=== PATIENT | female | born 1985 | race Caucasian/White ===

== ENCOUNTER 2016-12-04 11:01 | Emergency (ER) | payer BC, OTHER ==
[2016-12-04 12:34] LABS: MEAN CORPUSCULAR HEMOGLOBIN 32.1 pg (27.0-33.0); MEAN CORPUSCULAR HGB CONC 33.5 g/dl (32.0-36.5); MEAN CORPUSCULAR VOLUME 96.1 fl (80.0-96.0)
--- NOTE | 2016-12-04 14:57 | EDDOCDS ---
Nurse's Notes [facility] Name: Diann Tran Age: 31 yrs Sex: Female : 1985 Arrival Date: 12/04/2016 Time: 11:01 Bed I1 / M1 Private MD: No Pcp Diagnosis: Abnormal uterine and vaginal bleeding, unspecified;Other specified related conditions, first trimester Presentation: 12/04 11:04 Presenting complaint: Patient states: Approximately 10 weeks , intermittent ck1 bleeding with clots since Friday. Reports "mild" abdominal cramping since Friday night. Risk factors: The patient reports no loss of conciousness prior to arrival. This patient has not had a hysterectomy. This patient has not begun menopause. Adult Sepsis Screening: The patient does not have new or worsening altered mentation. Patient's respiratory rate is less than 22. Systolic blood pressure is less than or equal to 100 (1 point). Patient has a qSOFA score of 1- Negative Sepsis Screen. Suicide/Homicide risk assessment- the patient denies having any suicidal and/or homicidal ideations and does not present with any other emotional, behavioral or mental health complaints. Status: Patient is not a dental service technician or dependent. Transition of care: patient was not received from another setting of care. 11:04 Acuity: NEREIDA Level 3 ck1 11:04 Method Of Arrival: Walkin/Carried/Asstd ck1 Triage Assessment: 11:06 General: Appears in no apparent distress, comfortable, Behavior is appropriate for age, ck1 cooperative. Pain: Location: pelvis Pain currently is 2 out of 10 on a pain scale. Quality of pain is described as crampy. HIV screening NA for this visit Offered previously. Neurological: Level of Consciousness is awake, alert, obeys commands, Oriented to person, place, time. Respiratory: Respiratory effort is unlabored, Respiratory pattern is regular, symmetrical. : Reports vaginal bleeding that is with clots spotty. : Denies burning with urination. Derm: Skin is intact, is healthy with good turgor, Skin is pink, warm & dry. 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 Oral daily (Last dose: 12/03/2016 09:30) - PMHx: none; - PSHx: Cesearean Section; - Social history: Smoking status: Patient states was never smoker of tobacco. No barriers to communication noted, The patient speaks fluent Maori, Speaks appropriately for age. - Family history: Not pertinent. - : The pt / caregiver states he / she is not on anticoagulants. Home medication list is obtained from the patient. - Exposure Risk Screening:: None identified. Screenin:54 Screening information is obtained from the patient. Fall risk: No risks identified. ead Assistance ADL's: requires no assistance with activities of daily living. Abuse/DV Screen: The patient / caregiver reports he/she is: not in a situation that causes fear, pain or injury. Nutritional screening: No deficits noted. Advance Directives: Currently, there is no health care proxy. There is no Power of Respiratory Therapy Director. home support is adequate. Assessment: 12:30 General: Appears in no apparent distress, comfortable, Behavior is appropriate for age, ead cooperative, pleasant. Pain: Denies pain. Respiratory: Airway is patent Respiratory effort is even, unlabored. GI: Abdomen is flat, non- distended Denies nausea, vomiting, pain. : Reports vaginal bleeding that is moderate flow. Derm: Skin is pink, warm & dry. 13:39 General: Pt returned from ultrasound, awaiting results. ead 14:54 General: Appears in no apparent distress, comfortable, Behavior is appropriate for age, ead cooperative. Neurological: No deficits noted. Respiratory: Airway is patent Respiratory effort is even, unlabored. Derm: Skin is pink, warm & dry. Vital Signs: 11:02 BP 96 / 64; Pulse 80; Resp 18; Temp 98.9; Pulse Ox 100% ; Weight 50.8 kg; Height 5 ft. elp 1 in. (154.94 cm); Pain 2/10; 14:53 BP 103 / 58; Pulse 86; Resp 16; Temp 100.0(TE); Pulse Ox 98% ; Pain 2/10; jrd 11:02 Body Mass Index 21.16 (50.80 kg, 154.94 cm) [facility] Vitals: 11:02 Log In Time: December 04, 2016 at 10:50. [facility] ED Course: 11:02 Patient visited by Carolynn Lamar PCA. elp 11:02 No Pcp is Private Physician. elp 11:02 Patient moved to Waiting elp 11:03 Patient visited by Carolynn Lamar PCA. elp 11:03 Patient moved to Pre RCE elp 11:05 Triage Initiated ck1 11:48 Patient moved to Triage 3 rs6 11:57 Ad [facility] cc10 11:57 Markie Valencia MD is Attending Physician. cc10 11:57 Patient visited by Ad Garcia PA-C. cc10 11:57 Patient visited by Ad Garcia PA-C. cc10 11:59 Urine Culture Sent. rs6 11:59 Urinalysis Sent. rs6 12:01 Patient visited by Maria Esther August PCA. rs6 12:01 Patient moved to I1 / M1 jrd 13:03 Patient visited by Jennifer Crhistianson,DENITA. ead 13:08 Patient moved to Ultrasound sm5 13:10 Wet Prep Sent. ead 13:11 The patient / caregiver is instructed regarding the plan of care and ED course. Patient ead has correct armband on for positive identification. Placed in gown. Bed in low position. Call light in reach. Side rails up X 1. Adult w/ patient. 13:11 Assist provider with pelvic exam: Specimens sent to lab. Performed by Ad cramer PA-C Patient tolerated well. 13:39 Patient visited by Jennifer Christianson,RN. ead 13:39 Patient moved to I1 / M1 ead 14:40 Pradip Hanson MD is Referral Physician. cc10 14:43 Patient name changed from Diann\\S\\\\S\\Tran\\S\\ to Diann\\S\\ \\S\\Tran. EDMS 14:44 [facility] Payment Agreement was scanned into [employer] and attached to record. lg 14:53 Patient visited by Geoff Pan PCA. jrd 14:54 No IV's were initiated during this patient's visit. ead Point of Care Testing: Urine : 12:01 hCG Reading: Positive; Control Reading: Positive; rs6 Ranges: Order Results: Lab Order: Urinalysis; SPEC'M 12/04/16 11:51 Test: APPEARANCE, URINE; Value: CLEAR; Range: CLEAR; Status: F Test: COLOR, URINE; Value: YELLOW; Range: YELLOW; Status: F Test: PH,URINE; Value: 5.0; Range: 5.0-9.0; Units: UNITS; Status: F Test: SPECIFIC GRAVITY URINE AUTO; Value: 1.021; Range: 1.002-1.035; Status: F Test: PROTEIN, URINE AUTO; Value: NEGATIVE; Range: NEGATIVE; Units: mg/dL; Status: F Test: GLUCOSE, URINE (UA) AUTO; Value: NEGATIVE; Range: NEGATIVE; Units: mg/dL; Status: F Test: KETONE, URINE AUTO; Value: TRACE; Range: NEGATIVE; Abnormal: Above high normal; Units: mg/dL; Status: F Test: UROBILINOGEN, URINE AUTO; Value: 0.2; Range: 0.0-2.0; Units: mg/dL; Status: F Test: BILIRUBIN, URINE AUTO; Value: NEGATIVE; Range: NEGATIVE; Status: F Test: NITRITE, URINE AUTO; Value: NEGATIVE; Range: NEGATIVE; Status: F Test: LEUKOCYTE ESTERASE, URINE AUTO; Value: 1+; Range: NEGATIVE; Abnormal: Above high normal; Status: F Test: BLOOD, URINE BLOOD; Value: 3+; Range: NEGATIVE; Abnormal: Above high normal; Status: F Test: WBC, URINE AUTO; Value: 3; Range: 0-3; Units: /HPF; Status: F Test: RBC, URINE AUTO; Value: 2; Range: 0-3; Units: /HPF; Status: F Test: BACTERIA, URINE AUTO; Value: NEGATIVE; Range: NEGATIVE; Status: F Test: SQUAMOUS EPITHELIAL CELL UR AU; Value: 3; Range: 0-6; Units: /HPF; Status: F Test: MUCUS, URINE; Value: SMALL; Range: NEGATIVE; Status: F Test: HYALINE CAST, URINE AUTO; Value: 0; Range: 0-1; Units: /LPF; Status: F Lab Order: Complete Blood Count; SPEC'M 12/04/16 12:18 Test: WHITE BLOOD COUNT; Value: 7.0; Range: 4.0-10.0; Units: K/mm3; Status: F Test: RED BLOOD COUNT; Value: 4.01; Range: 4.00-5.40; Units: M/mm3; Status: F Test: HEMOGLOBIN; Value: 12.9; Range: 12.0-16.0; Units: g/dl; Status: F Test: HEMATOCRIT; Value: 38.6; Range: 36.0-47.0; Units: %; Status: F Test: MEAN CORPUSCULAR VOLUME; Value: 96.1; Range: 80.0-96.0; Abnormal: Above high normal; Units: fl; Status: F Test: MEAN CORPUSCULAR HEMOGLOBIN; Value: 32.1; Range: 27.0-33.0; Units: pg; Status: F Test: MEAN CORPUSCULAR HGB CONC; Value: 33.5; Range: 32.0-36.5; Units: g/dl; Status: F Test: RED CELL DISTRIBUTION WIDTH; Value: 12.0; Range: 11.5-14.5; Units: %; Status: F Test: PLATELET COUNT, AUTOMATED; Value: 330; Range: 150-450; Units: k/mm3; Status: F Lab Order: Hcg, Serum Quantitative; SPEC'M 12/04/16 12:18 Test: HCG, SERUM QUANTITATIVE; Value: 8590; Units: MIU/ML; Status: F Test Note: ; GESTATIONAL AGE APPROXIMATE HCG RANGE (MIU/ML) 0.2-1 WEEK 5-50 1-2 WEEKS 50-500 2-3 WEEKS 100-5,000 3-4 WEEKS 500-10,000 4-5 WEEKS 1,000-50,000 5-6 WEEKS 10,000-100,000 6-8 WEEKS 15,000-200,000 2-3 MONTHS 10,000-100,000 NON FEMALES LESS THAN 3.0 Patient samples may contain human heterophilic antibodies that could react with immunoassays to give falsely elevated or depressed results. This assay has been designed to minimize interference from heterophilic antibodies. Elevated hCG levels have also been associated with trophoblastic disease and nontrophoblastic neoplasms. The possibility of having these diseases should be considered before a diagnosis of is made. This test is not intended for use as a surrogate marker for aiding in the diagnosis or monitoring the treatment of cancer patients. [employer] methodology. Lab Order: Rh Only; SPEC'M 12/04/16 12:18 Test: RH; Value: POSITIVE; Status: F Lab Order: Wet Prep; SPEC'M 12/04/16 13:04 Test: WET PREP; Value: WET PREP RESULT; Status: F Test: WET PREP; Value: FEW EPITHELIAL CELLS PRESENT; Status: F Test: WET PREP; Value: FEW WBC; Status: F Test: WET PREP; Value: FEW SHORT RODS PRESENT; Status: F Outcome: 14:40 Discharge ordered by Provider. cc10 14:54 Discharge Assessment: Patient awake and alert. obeys commands, Oriented to person, ead place and time. patient administered narcotics - no. The following High Risk Discharge criteria are identified: None. Discharged to home ambulatory, with significant other. Condition: unchanged. Discharge instructions given to patient, significant other, Instructed on discharge instructions, follow up and referral plans. Demonstrated understanding of instructions, Pt was receptive of discharge instructions/ teaching. Ultrasound Study completed. Property sent home with patient. 14:56 Patient left the ED. ead Signatures: Dispatcher [employer] EDMS Myles Conteh, Rojas Reg lg Christine Bardales sm5 Miryam Carrera,RN RN ck1 Carolynn Lamar, CLINICAL PRACTITIONER CLINICAL PRACTITIONER elJennifer Seals RN RN ead Ad Garcia, PA-C PA-C cc10 Geoff Pan, CLINICAL PRACTITIONER CLINICAL PRACTITIONER jrd Maria Esther August, CLINICAL PRACTITIONER CLINICAL PRACTITIONER rs6 MTDD
--- NOTE | 2016-12-04 14:57 | EDDOCDS ---
Physician Documentation [facility] Name: Diann Tran Age: 31 yrs Sex: Female : 1985 Arrival Date: 12/04/2016 Time: 11:01 Bed I1 / M1 Private MD: No Pcp Disposition: 12/04/16 14:40 Discharged to Home/Self Care. Impression: Abnormal uterine and vaginal bleeding, unspecified, Other specified related conditions, first trimester. - Condition is Stable. - Discharge Instructions: Miscarriage, Threatened Miscarriage. - Medication Reconciliation form. - Follow up: Emergency Department; When: As needed; Reason: Worsening of conditions. Follow up: Pradip Hanson MD; When: Call to arrange an appointment; Reason: Wound/Symptom Recheck, Recheck today's complaints, Worsening of conditions, Continuance of care. - Problem is an ongoing problem. - Symptoms are unchanged. - Notes: Please follow up as scheduled. Thanks Historical: - Allergies: No known drug Allergies; - Home Meds: 1. Oral daily (Last dose: 12/03/2016 09:30) - PMHx: none; - PSHx: Cesearean Section; - Social history: Smoking status: Patient states was never smoker of tobacco. No barriers to communication noted, The patient speaks fluent Slovak, Speaks appropriately for age. - Family history: Not pertinent. - : The pt / caregiver states he / she is not on anticoagulants. Home medication list is obtained from the patient. - Exposure Risk Screening:: None identified. 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 1 in. (154.94 cm); Pain 2/10; 14:53 BP 103 / 58; Pulse 86; Resp 16; Temp 100.0(TE); Pulse Ox 98% ; Pain 2/10; jrd 11:02 Body Mass Index 21.16 (50.80 kg, 154.94 cm) elp MDM: 11:10 UCG by Nursing ordered. dt4 11:11 Urinalysis Ordered. EDMS 11:11 Urine Culture Ordered. EDMS 12:02 Undress patient appropriately for examination ordered. cc10 12:02 Set up pelvic ordered. cc10 12:03 Complete Blood Count Ordered. EDMS 12:03 Hcg, Serum Quantitative Ordered. EDMS 12:03 Rh Only Ordered. EDMS 12:03 Wet Prep Ordered. EDMS 12:03 US 1st trimester Ordered. EDMS 12:33 Financial registration complete. lg 13:05 Urinalysis Reviewed. cc10 13:05 Complete Blood Count Reviewed. cc10 13:05 Rh Only Reviewed. cc10 13:40 Hcg, Serum Quantitative Reviewed. cc10 13:40 Wet Prep Reviewed. cc10 13:41 TRANSVAGINAL US Ordered. EDMS 13:41 DUPLEX SCAN LIMITED (DOPPLER) Ordered. EDMS 14:44 [facility] Payment Agreement was scanned into [employer] and attached to record. Point of Care Testing: Urine : 12:01 hCG Reading: Positive; Control Reading: Positive; rs6 Ranges: Signatures: Dispatcher [employer] EDWY Myles Conteh, Reg Reg lg Miryam CarreraRN RN ck1 Jennifer Christianson RN RN eaAd Dale, PA-C PA-C cc10 Jasmin Luis, PASariahC PA-C dt4 The chart was reviewed and I authenticate all verbal orders and agree with the evaluation and treatment provided.Attachments: 14:44 [facility] Payment Agreement lg MTDD
--- NOTE | 2016-12-04 14:58 | REP ---
OBSTETRIC SONOGRAPHY: First trimester study. HISTORY: Vaginal bleeding. FINDINGS: Transabdominal and transvaginal scanning demonstrates an abnormal intrauterine gestational sac. Mean sac size diameter is 15 mm. This corresponds with a 3-yipx-1-day gestational age estimate. There is no embryonic pole or yolk sac visible within the sac in the uterine endometrium. The uterus measures 9.3 x 4.2 x 5.1 cm. No free fluid is seen nor is there evidence of adnexal mass. A normal right ovary seen measuring 1.9 x 1.5 x 2.0 cm. Its Doppler flow is normal with resistive index is 0.60. The left ovary measures 2.0 x 2.0 x 2.3 cm. Its Doppler flow is normal, resistive index 0.53. There is a 1.0 cm involuting cyst in the left ovary. IMPRESSION: Abnormal gestational sac in the uterine endometrium 2-vaxi-9-day by sac size diameter. No embryonic pole or yolk sac seen. Nonspecific. Clinical and possibly sonographic follow-up suggested. Missed , versus blighted ovum, versus early intrauterine . No adnexal mass or free fluid. Signed by Ko Walker MD 12/04/2016 08:13 P
--- NOTE | 2016-12-06 15:57 | EDDOCDS ---
Physician Documentation [facility] Name: Diann Tran Age: 31 yrs Sex: Female : 1985 Arrival Date: 12/04/2016 Time: 11:01 Bed I1 / M1 Private MD: No Pcp Disposition: 12/04/16 14:40 Discharged to Home/Self Care. Impression: Abnormal uterine and vaginal bleeding, unspecified, Other specified related conditions, first trimester. - Condition is Stable. - Discharge Instructions: Miscarriage, Threatened Miscarriage. - Medication Reconciliation form. - Follow up: Emergency Department; When: As needed; Reason: Worsening of conditions. Follow up: Pradip Hanson MD; When: Call to arrange an appointment; Reason: Wound/Symptom Recheck, Recheck today's complaints, Worsening of conditions, Continuance of care. - Problem is an ongoing problem. - Symptoms are unchanged. - Notes: Please follow up as scheduled. Thanks Historical: - Allergies: No known drug Allergies; - Home Meds: 1. Oral daily (Last dose: 12/03/2016 09:30) - PMHx: none; - PSHx: Cesearean Section; - Social history: Smoking status: Patient states was never smoker of tobacco. No barriers to communication noted, The patient speaks fluent Italian, Speaks appropriately for age. - Family history: Not pertinent. - : The pt / caregiver states he / she is not on anticoagulants. Home medication list is obtained from the patient. - Exposure Risk Screening:: None identified. 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 1 in. (154.94 cm); Pain 2/10; 14:53 BP 103 / 58; Pulse 86; Resp 16; Temp 100.0(TE); Pulse Ox 98% ; Pain 2/10; jrd 11:02 Body Mass Index 21.16 (50.80 kg, 154.94 cm) elp MDM: 11:10 UCG by Nursing ordered. dt4 11:11 Urinalysis Ordered. EDMS 11:11 Urine Culture Ordered. EDMS 12:02 Undress patient appropriately for examination ordered. cc10 12:02 Set up pelvic ordered. cc10 12:03 Complete Blood Count Ordered. EDMS 12:03 Hcg, Serum Quantitative Ordered. EDMS 12:03 Rh Only Ordered. EDMS 12:03 Wet Prep Ordered. EDMS 12:03 US 1st trimester Ordered. EDMS 12:33 Financial registration complete. lg 13:05 Urinalysis Reviewed. cc10 13:05 Complete Blood Count Reviewed. cc10 13:05 Rh Only Reviewed. cc10 13:40 Hcg, Serum Quantitative Reviewed. cc10 13:40 Wet Prep Reviewed. cc10 13:41 TRANSVAGINAL US Ordered. EDMS 13:41 DUPLEX SCAN LIMITED (DOPPLER) Ordered. EDMS 14:44 [facility] Payment Agreement was scanned into [employer] and attached to record. lg 15:02 T-Sheet-- Draft Copy was scanned into [employer] and attached to record. gb Point of Care Testing: Urine : 12:01 hCG Reading: Positive; Control Reading: Positive; rs6 Ranges: Signatures: Dispatcher [employer] EDMS Katelyn Keenan, Reg Reg gb Myles Conteh, Reg Reg lg Miryam Carrera,RN RN ck1 Jennifer Christianson,RN RN ead Ad Garcia PA-C PA-C cc10 Jasmin Luis PA-C PAKera dt4 The chart was reviewed and I authenticate all verbal orders and agree with the evaluation and treatment provided.Attachments: 14:44 [facility] Payment Agreement lg 15:02 T-Sheet-- Draft Copy gb Chart Complete MTDD
--- NOTE | 2016-12-06 15:57 | EDDOCDS ---
Physician Documentation [facility] Name: Diann Tran Age: 31 yrs Sex: Female : 1985 Arrival Date: 12/04/2016 Time: 11:01 Bed I1 / M1 Private MD: No Pcp Disposition: 12/04/16 14:40 Discharged to Home/Self Care. Impression: Abnormal uterine and vaginal bleeding, unspecified, Other specified related conditions, first trimester. - Condition is Stable. - Discharge Instructions: Miscarriage, Threatened Miscarriage. - Medication Reconciliation form. - Follow up: Emergency Department; When: As needed; Reason: Worsening of conditions. Follow up: Pradip Hanson MD; When: Call to arrange an appointment; Reason: Wound/Symptom Recheck, Recheck today's complaints, Worsening of conditions, Continuance of care. - Problem is an ongoing problem. - Symptoms are unchanged. - Notes: Please follow up as scheduled. Thanks Historical: - Allergies: No known drug Allergies; - Home Meds: 1. Oral daily (Last dose: 12/03/2016 09:30) - PMHx: none; - PSHx: Cesearean Section; - Social history: Smoking status: Patient states was never smoker of tobacco. No barriers to communication noted, The patient speaks fluent Faroese, Speaks appropriately for age. - Family history: Not pertinent. - : The pt / caregiver states he / she is not on anticoagulants. Home medication list is obtained from the patient. - Exposure Risk Screening:: None identified. 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 1 in. (154.94 cm); Pain 2/10; 14:53 BP 103 / 58; Pulse 86; Resp 16; Temp 100.0(TE); Pulse Ox 98% ; Pain 2/10; jrd 11:02 Body Mass Index 21.16 (50.80 kg, 154.94 cm) elp MDM: 11:10 UCG by Nursing ordered. dt4 11:11 Urinalysis Ordered. EDMS 11:11 Urine Culture Ordered. EDMS 12:02 Undress patient appropriately for examination ordered. cc10 12:02 Set up pelvic ordered. cc10 12:03 Complete Blood Count Ordered. EDMS 12:03 Hcg, Serum Quantitative Ordered. EDMS 12:03 Rh Only Ordered. EDMS 12:03 Wet Prep Ordered. EDMS 12:03 US 1st trimester Ordered. EDMS 12:33 Financial registration complete. lg 13:05 Urinalysis Reviewed. cc10 13:05 Complete Blood Count Reviewed. cc10 13:05 Rh Only Reviewed. cc10 13:40 Hcg, Serum Quantitative Reviewed. cc10 13:40 Wet Prep Reviewed. cc10 13:41 TRANSVAGINAL US Ordered. EDMS 13:41 DUPLEX SCAN LIMITED (DOPPLER) Ordered. EDMS 14:44 [facility] Payment Agreement was scanned into [employer] and attached to record. lg 15:02 T-Sheet-- Draft Copy was scanned into [employer] and attached to record. gb Point of Care Testing: Urine : 12:01 hCG Reading: Positive; Control Reading: Positive; rs6 Ranges: Signatures: Dispatcher [employer] EDMS Katelyn Keenan, Reg Reg gb Myles Conteh, Reg Reg lg Miryam Carrera,RN RN ck1 Jennifer Christianson,RN RN ead dA Garcia PA-C PA-C cc10 Jasmin Luis PA-C PAKera dt4 The chart was reviewed and I authenticate all verbal orders and agree with the evaluation and treatment provided.Attachments: 14:44 [facility] Payment Agreement lg 15:02 T-Sheet-- Draft Copy gb Chart Complete MTDD
--- NOTE | 2016-12-06 15:57 | EDDOCDS ---
Nurse's Notes [facility] Name: Diann Tran Age: 31 yrs Sex: Female : 1985 Arrival Date: 12/04/2016 Time: 11:01 Bed I1 / M1 Private MD: No Pcp Diagnosis: Abnormal uterine and vaginal bleeding, unspecified;Other specified related conditions, first trimester Presentation: 12/04 11:04 Presenting complaint: Patient states: Approximately 10 weeks , intermittent ck1 bleeding with clots since Friday. Reports "mild" abdominal cramping since Friday night. Risk factors: The patient reports no loss of conciousness prior to arrival. This patient has not had a hysterectomy. This patient has not begun menopause. Adult Sepsis Screening: The patient does not have new or worsening altered mentation. Patient's respiratory rate is less than 22. Systolic blood pressure is less than or equal to 100 (1 point). Patient has a qSOFA score of 1- Negative Sepsis Screen. Suicide/Homicide risk assessment- the patient denies having any suicidal and/or homicidal ideations and does not present with any other emotional, behavioral or mental health complaints. Status: Patient is not a director of clinical services or dependent. Transition of care: patient was not received from another setting of care. 11:04 Acuity: NEREIDA Level 3 ck1 11:04 Method Of Arrival: Walkin/Carried/Asstd ck1 Triage Assessment: 11:06 General: Appears in no apparent distress, comfortable, Behavior is appropriate for age, ck1 cooperative. Pain: Location: pelvis Pain currently is 2 out of 10 on a pain scale. Quality of pain is described as crampy. HIV screening NA for this visit Offered previously. Neurological: Level of Consciousness is awake, alert, obeys commands, Oriented to person, place, time. Respiratory: Respiratory effort is unlabored, Respiratory pattern is regular, symmetrical. : Reports vaginal bleeding that is with clots spotty. : Denies burning with urination. Derm: Skin is intact, is healthy with good turgor, Skin is pink, warm & dry. 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 Oral daily (Last dose: 12/03/2016 09:30) - PMHx: none; - PSHx: Cesearean Section; - Social history: Smoking status: Patient states was never smoker of tobacco. No barriers to communication noted, The patient speaks fluent Serbian, Speaks appropriately for age. - Family history: Not pertinent. - : The pt / caregiver states he / she is not on anticoagulants. Home medication list is obtained from the patient. - Exposure Risk Screening:: None identified. Screenin:54 Screening information is obtained from the patient. Fall risk: No risks identified. ead Assistance ADL's: requires no assistance with activities of daily living. Abuse/DV Screen: The patient / caregiver reports he/she is: not in a situation that causes fear, pain or injury. Nutritional screening: No deficits noted. Advance Directives: Currently, there is no health care proxy. There is no Power of Health Service Coordinator. home support is adequate. Assessment: 12:30 General: Appears in no apparent distress, comfortable, Behavior is appropriate for age, ead cooperative, pleasant. Pain: Denies pain. Respiratory: Airway is patent Respiratory effort is even, unlabored. GI: Abdomen is flat, non- distended Denies nausea, vomiting, pain. : Reports vaginal bleeding that is moderate flow. Derm: Skin is pink, warm & dry. 13:39 General: Pt returned from ultrasound, awaiting results. ead 14:54 General: Appears in no apparent distress, comfortable, Behavior is appropriate for age, ead cooperative. Neurological: No deficits noted. Respiratory: Airway is patent Respiratory effort is even, unlabored. Derm: Skin is pink, warm & dry. Vital Signs: 11:02 BP 96 / 64; Pulse 80; Resp 18; Temp 98.9; Pulse Ox 100% ; Weight 50.8 kg; Height 5 ft. elp 1 in. (154.94 cm); Pain 2/10; 14:53 BP 103 / 58; Pulse 86; Resp 16; Temp 100.0(TE); Pulse Ox 98% ; Pain 2/10; jrd 11:02 Body Mass Index 21.16 (50.80 kg, 154.94 cm) [facility] Vitals: 11:02 Log In Time: December 04, 2016 at 10:50. [facility] ED Course: 11:02 Patient visited by Carolynn Lamar PCA. elp 11:02 No Pcp is Private Physician. elp 11:02 Patient moved to Waiting elp 11:03 Patient visited by Carolynn Lamar PCA. elp 11:03 Patient moved to Pre RCE elp 11:05 Triage Initiated ck1 11:48 Patient moved to Triage 3 rs6 11:57 [facility] cc10 11:57 Markie Valencia MD is Attending Physician. cc10 11:57 Patient visited by Ad Garcia PA-C. cc10 11:57 Patient visited by Ad Garcia PA-C. cc10 11:59 Urine Culture Sent. rs6 11:59 Urinalysis Sent. rs6 12:01 Patient visited by Maria Esther August PCA. rs6 12:01 Patient moved to I1 / M1 jrd 13:03 Patient visited by Jennifer Christianson,DENITA. ead 13:08 Patient moved to Ultrasound sm5 13:10 Wet Prep Sent. ead 13:11 The patient / caregiver is instructed regarding the plan of care and ED course. Patient ead has correct armband on for positive identification. Placed in gown. Bed in low position. Call light in reach. Side rails up X 1. Adult w/ patient. 13:11 Assist provider with pelvic exam: Specimens sent to lab. Performed by Ad cramer PA-C Patient tolerated well. 13:39 Patient visited by Jennifer Christianson,RN. ead 13:39 Patient moved to I1 / M1 ead 14:40 Pradip Hanson MD is Referral Physician. cc10 14:43 Patient name changed from Diann\\S\\\\S\\Tran\\S\\ to Diann\\S\\ \\S\\Tran. EDMS 14:44 [facility] Payment Agreement was scanned into [employer] and attached to record. lg 14:53 Patient visited by Geoff Pan PCA. jrd 14:54 No IV's were initiated during this patient's visit. ead 15:00 US 1st trimester Returned. EDMS 15:02 T-Sheet-- Draft Copy was scanned into [employer] and attached to record. gb Point of Care Testing: Urine : 12:01 hCG Reading: Positive; Control Reading: Positive; rs6 Ranges: Order Results: Lab Order: Urinalysis; SPEC'M 12/04/16 11:51 Test: APPEARANCE, URINE; Value: CLEAR; Range: CLEAR; Status: F Test: COLOR, URINE; Value: YELLOW; Range: YELLOW; Status: F Test: PH,URINE; Value: 5.0; Range: 5.0-9.0; Units: UNITS; Status: F Test: SPECIFIC GRAVITY URINE AUTO; Value: 1.021; Range: 1.002-1.035; Status: F Test: PROTEIN, URINE AUTO; Value: NEGATIVE; Range: NEGATIVE; Units: mg/dL; Status: F Test: GLUCOSE, URINE (UA) AUTO; Value: NEGATIVE; Range: NEGATIVE; Units: mg/dL; Status: F Test: KETONE, URINE AUTO; Value: TRACE; Range: NEGATIVE; Abnormal: Above high normal; Units: mg/dL; Status: F Test: UROBILINOGEN, URINE AUTO; Value: 0.2; Range: 0.0-2.0; Units: mg/dL; Status: F Test: BILIRUBIN, URINE AUTO; Value: NEGATIVE; Range: NEGATIVE; Status: F Test: NITRITE, URINE AUTO; Value: NEGATIVE; Range: NEGATIVE; Status: F Test: LEUKOCYTE ESTERASE, URINE AUTO; Value: 1+; Range: NEGATIVE; Abnormal: Above high normal; Status: F Test: BLOOD, URINE BLOOD; Value: 3+; Range: NEGATIVE; Abnormal: Above high normal; Status: F Test: WBC, URINE AUTO; Value: 3; Range: 0-3; Units: /HPF; Status: F Test: RBC, URINE AUTO; Value: 2; Range: 0-3; Units: /HPF; Status: F Test: BACTERIA, URINE AUTO; Value: NEGATIVE; Range: NEGATIVE; Status: F Test: SQUAMOUS EPITHELIAL CELL UR AU; Value: 3; Range: 0-6; Units: /HPF; Status: F Test: MUCUS, URINE; Value: SMALL; Range: NEGATIVE; Status: F Test: HYALINE CAST, URINE AUTO; Value: 0; Range: 0-1; Units: /LPF; Status: F Lab Order: Urine Culture; SPEC'M 12/04/16 11:51 Test: URINE CULTURE; Value: URINE CULTURE RESULT NO GROWTH; Status: F Lab Order: Complete Blood Count; SPEC'M 12/04/16 12:18 Test: WHITE BLOOD COUNT; Value: 7.0; Range: 4.0-10.0; Units: K/mm3; Status: F Test: RED BLOOD COUNT; Value: 4.01; Range: 4.00-5.40; Units: M/mm3; Status: F Test: HEMOGLOBIN; Value: 12.9; Range: 12.0-16.0; Units: g/dl; Status: F Test: HEMATOCRIT; Value: 38.6; Range: 36.0-47.0; Units: %; Status: F Test: MEAN CORPUSCULAR VOLUME; Value: 96.1; Range: 80.0-96.0; Abnormal: Above high normal; Units: fl; Status: F Test: MEAN CORPUSCULAR HEMOGLOBIN; Value: 32.1; Range: 27.0-33.0; Units: pg; Status: F Test: MEAN CORPUSCULAR HGB CONC; Value: 33.5; Range: 32.0-36.5; Units: g/dl; Status: F Test: RED CELL DISTRIBUTION WIDTH; Value: 12.0; Range: 11.5-14.5; Units: %; Status: F Test: PLATELET COUNT, AUTOMATED; Value: 330; Range: 150-450; Units: k/mm3; Status: F Lab Order: Hcg, Serum Quantitative; SPEC'M 12/04/16 12:18 Test: HCG, SERUM QUANTITATIVE; Value: 8590; Units: MIU/ML; Status: F Test Note: ; GESTATIONAL AGE APPROXIMATE HCG RANGE (MIU/ML) 0.2-1 WEEK 5-50 1-2 WEEKS 50-500 2-3 WEEKS 100-5,000 3-4 WEEKS 500-10,000 4-5 WEEKS 1,000-50,000 5-6 WEEKS 10,000-100,000 6-8 WEEKS 15,000-200,000 2-3 MONTHS 10,000-100,000 NON FEMALES LESS THAN 3.0 Patient samples may contain human heterophilic antibodies that could react with immunoassays to give falsely elevated or depressed results. This assay has been designed to minimize interference from heterophilic antibodies. Elevated hCG levels have also been associated with trophoblastic disease and nontrophoblastic neoplasms. The possibility of having these diseases should be considered before a diagnosis of is made. This test is not intended for use as a surrogate marker for aiding in the diagnosis or monitoring the treatment of cancer patients. Lenet methodology. Lab Order: Rh Only; SPEC'M 12/04/16 12:18 Test: RH; Value: POSITIVE; Status: F Lab Order: Wet Prep; SPEC'M 12/04/16 13:04 Test: WET PREP; Value: WET PREP RESULT; Status: F Test: WET PREP; Value: FEW EPITHELIAL CELLS PRESENT; Status: F Test: WET PREP; Value: FEW WBC; Status: F Test: WET PREP; Value: FEW SHORT RODS PRESENT; Status: F Radiology Order: US 1st trimester Test: US 1st trimester REASON FOR EXAMINATION: Bleeding; OBSTETRIC SONOGRAPHY:; ; First trimester study.; ; HISTORY: Vaginal bleeding.; ; FINDINGS: Transabdominal and transvaginal scanning demonstrates an abnormal; intrauterine gestational sac. Mean sac size diameter is 15 mm. This corresponds; with a 9-zjnp-3-day gestational age estimate. There is no embryonic pole or yolk; sac visible within the sac in the uterine endometrium. The uterus measures 9.3 x; 4.2 x 5.1 cm. No free fluid is seen nor is there evidence of adnexal mass. A; normal right ovary seen measuring 1.9 x 1.5 x 2.0 cm. Its Doppler flow is normal; with resistive index is 0.60. The left ovary measures 2.0 x 2.0 x 2.3 cm. Its; Doppler flow is normal, resistive index 0.53. There is a 1.0 cm involuting cyst; in the left ovary.; ; IMPRESSION: Abnormal gestational sac in the uterine endometrium 4-kokh-1-day by; sac size diameter. No embryonic pole or yolk sac seen. Nonspecific. Clinical; and possibly sonographic follow-up suggested. Missed , versus blighted; ovum, versus early intrauterine . No adnexal mass or free fluid.; ; ; Signed by; Ko Walker MD 12/04/2016 08:13 P; Outcome: 14:40 Discharge ordered by Provider. cc10 14:54 Discharge Assessment: Patient awake and alert. obeys commands, Oriented to person, ead place and time. patient administered narcotics - no. The following High Risk Discharge criteria are identified: None. Discharged to home ambulatory, with significant other. Condition: unchanged. Discharge instructions given to patient, significant other, Instructed on discharge instructions, follow up and referral plans. Demonstrated understanding of instructions, Pt was receptive of discharge instructions/ teaching. Ultrasound Study completed. Property sent home with patient. 14:56 Patient left the ED. ead Signatures: Dispatcher [employer] EDMS AnderKatelyn muro, Reg Reg gb Yayayuriy, Perlashagufta, Reg Reg lg Catia, Christine sm5 Miryam Carrera,RN RN ck1 Carolynn Lamar, CHIEF CONTROLLER STATION CHIEF CONTROLLER STATION Jennifer Alberts RN RN ead Ad Garcia, PA-C PA-C cc10 Geoff Pan, CHIEF CONTROLLER STATION CHIEF CONTROLLER STATION Maria Esther Chandra, CHIEF CONTROLLER STATION CHIEF CONTROLLER STATION rs6 Chart Complete MTDAna
== END 2016-12-04 14:56 | disposition home or self-care (01) ==
LOC: M ED 11:01
DX: O20.0 Threatened abortion (principal); Z3A.10 10 weeks gestation of pregnancy

== ENCOUNTER → 2016-12-06 | Outpatient (CLI) | payer BC | LOC: M SMT 11:29 | PROVIDERS: ATTEND Advanced Practice Midwife | DX: O02.1 Missed abortion (principal) ==

== ENCOUNTER → 2016-12-13 | Outpatient (CLI) | payer BC | LOC: M SMT 11:08 | PROVIDERS: ATTEND Advanced Practice Midwife | DX: O02.1 Missed abortion (principal) ==

== ENCOUNTER → 2021-01-04 | Outpatient (REF) | payer BC | LOC: M LAB REF 16:51 | PROVIDERS: ATTEND Obstetrics & Gynecology | DX: Z34.83 Encounter for supervision of other normal pregnancy, third trimester (principal); Z3A.00 Weeks of gestation of pregnancy not specified ==

== ENCOUNTER → 2021-01-25 | Outpatient (CLI) | payer BC | LOC: M LABSMTC 09:53 | PROVIDERS: ATTEND Anesthesiology | DX: Z01.812 Encounter for preprocedural laboratory examination (principal); Z20.828 Contact with and (suspected) exposure to other viral communicable diseases ==

== ENCOUNTER 2021-01-30 07:32 | Inpatient (IN) | payer BC ==
[~2021-01-30] VITALS: Ht 154.9 cm; Wt 64.6 kg
[2021-01-30] VITALS (7 sets, daily range): BP systolic 89–106; BP diastolic 47–63
[2021-01-30] MEDS ORDERED: LACTATED RINGER'S 1000 ML IV STA (07:46)
[2021-01-30] MEDS ORDERED: LR 1,000 ML IV SCH ×3 (07:46→16:35)
[2021-01-30] MEDS ORDERED: BICITRA 30ML SOLN UDC PO ONE (07:50)
[2021-01-30] MEDS ORDERED: ceFAZolin SOD 2 GM in IV 1 EA IV ONE (07:50)
[2021-01-30] MEDS ORDERED: PRENTAB9 PO (08:00)
[2021-01-30 08:42] LABS: HEMATOCRIT 36.7 % (36.0-47.0); MEAN CORPUSCULAR HEMOGLOBIN 31.6 pg (27.0-33.0); MEAN CORPUSCULAR HGB CONC 32.7 g/dl (32.0-36.5); MEAN CORPUSCULAR VOLUME 96.6 fl (80.0-96.0); PLATELET COUNT, AUTOMATED 273 10^3/uL (150-450); WHITE BLOOD COUNT 11.6 10^3/uL (4.0-10.0)
[2021-01-30] MEDS ORDERED: OXYTOCIN DRIP 30 UNITS in IV 1 EA IV SCH (10:32)
[2021-01-30] MEDS ORDERED: MEASLES,MUMPS,RUBELLA VACCINE INJ (MMR-II) (90707) SC SCH (10:35)
[2021-01-30] MEDS ORDERED: RHOGAM 300 MCG (1500 IU) INJ (J2790) IM SCH (10:35)
[2021-01-30] MEDS ORDERED: diphenhydrAMINE 50MG/ML VIAL (J1200) IV PRN (10:46)
[2021-01-30] MEDS ORDERED: NALOXONE INJ 0.4MG/1ML VIAL (J2310 PER 1MG) IV PRN ×2 (10:46)
[2021-01-30] MEDS ORDERED: NALBUPHINE HCL 10 MG/ML AMP (J2300) IV PRN (10:46)
[2021-01-30] MEDS ORDERED: ONDANSETRON 4MG/2ML VIAL IV PRN ×2 (10:46→11:55)
[2021-01-30] MEDS ORDERED: METOCLOPRAMIDE INJ 10MG/2ML VIAL (J2765 PER 1) IV PRN ×2 (10:46→11:55)
[2021-01-30] MEDS ORDERED: PHENYLephrine 500MCG 5ML (100MCG/ML) SYRINGE As Ordered ONE (10:58)
[2021-01-30] MEDS ORDERED: dexameTHASONE 4 MG/ML 1ML VIAL (J1100 PER 1MG) As Ordered ONE (10:58)
[2021-01-30] MEDS ORDERED: MORPHINE PRES-FREE INJ 10 MG/10 ML VIAL (J2274) As Ordered ONE (10:58)
[2021-01-30] MEDS ORDERED: OXYTOCIN 30 UNITS IN 0.9% NaCl 500ML IV BAG (J2590) As Ordered ONE ×2 (10:58→11:58)
[2021-01-30] MEDS ORDERED: KETOROLAC 60MG 2ML VIAL As Ordered ONE (10:58)
[2021-01-30] MEDS ORDERED: ONDANSETRON 4MG/2ML VIAL As Ordered ONE (10:58)
[2021-01-30] MEDS ORDERED: ePHEDrine SULFATE 25 MG/5 ML(5MG/ML) SYRINGE As Ordered ONE (11:00)
[2021-01-30] MEDS ORDERED: fentaNYL 100 MCG/2 ML INJECTION (J3010) As Ordered ONE ×2 (11:15→12:42)
[2021-01-30 11:17] LABS: CORD GAS ABE V -2.1; CORD GAS HCO3 V 24.6 MEQ/L; CORD GAS O2 SAT V 63.8 %; CORD GAS PCO2 V 49.6 mmHg; CORD GAS PH V 7.314 UNITS; CORD GAS PO2 V 27.4 mmHg; CORD GAS SBC V 21.9 MEQ/L; CORD GAS TCO2 V 26.2 MEQ/L
[2021-01-30] MEDS ORDERED: MIDAZOLAM INJ 2MG/2ML VIAL (J2250 PER 1MG) As Ordered ONE (11:17)
[2021-01-30 11:18] LABS: CORD GAS ABE A -2.5; CORD GAS HCO3 A 25.6 MEQ/L; CORD GAS PCO2 A 58.7 mmHg; CORD GAS PH A 7.258 UNITS; CORD GAS PO2 A 14.3 mmHg; CORD GAS SBC A 20.7 MEQ/L; CORD GAS TCO2 A 27.4 MEQ/L
[2021-01-30] MEDS ORDERED: PERCOCET 5MG/325MG TAB PO PRN (11:55)
[2021-01-30] MEDS ORDERED: fentaNYL 100 MCG/2 ML INJECTION (J3010) IV PRN (11:55)
[2021-01-30] MEDS: PERCOCET 5MG/325MG TAB PO PRN (14:04)
[2021-01-30] MEDS: SIMETHICONE 80MG CHEW TAB PO PRN (14:05)
--- NOTE | 2021-01-30 14:26 | RO ---
OPERATIVE NOTE DATE OF OPERATION: 01/30/2021 INDICATION: Diann is a 36-year-old female with a history of prior section who is being admitted for elective repeat section. Patient also desires permanent tubal sterilization. She has had three prior sections. PREOPERATIVE DIAGNOSES: 1. Term for elective repeat section. 2. Desires permanent tubal sterilization. POSTOPERATIVE DIAGNOSES: 1. Term for elective repeat section. 2. Desires permanent tubal sterilization. 3. Dense scar tissue. PROCEDURES: 1. Repeat section. 2. Bilateral tubal ligation using Filshie clip. 3. Extensive lysis of adhesions. 4. Revision of old scar. SURGEON: Drake Mcghee DO. MANAGER WELDING: Yue Perdomo MD. ANESTHESIA: Spinal. COMPLICATIONS: None. ESTIMATED BLOOD LOSS: 500 mL. FINDINGS: Live male infant in occiput transverse position, 9/9, weight 7 pounds 7 ounces. Dense omental and lower uterine incision scar tissue noted. DESCRIPTION OF PROCEDURE: After obtaining informed consent, patient was taken to the operating room where spinal anesthetic was found to be adequate. She was then draped and prepped in the usual sterile fashion in the supine position. At this point, elliptical incision was made over her old scar. This was carried down to the fascia. Fascia was incised in midline fashion and carried through a laterally superior aspect of the fascia and then grasped with the Amita clamp, tented off, and dissected off the rectus muscle sharply. The inferior aspect was dissected off in a similar fashion. Rectus muscle of the midline fascia. Peritoneum identified. Peritoneal cavity entered bluntly. Superior and inferior dissection of the peritoneum was then done with good visualization of the bladder. At this point, dense omental adhesions and lower uterine segment adhesions were noted. These were taken down using a series of sharp and blunt dissection. A Mobius skin retractor was placed. A low transverse uterine incision was made. was delivered in an atraumatic fashion. Nose and mouth bulb suctioned. Cord doubly clamped and cut, and infant was handed over to awaiting warmer. Cord blood and cord gas were sent. Placenta removed manually. Uterus cleared of all clot and debris, and the uterine incision was then repaired in two separate layers of 0 Vicryl sutures. Attention turned to the fallopian tube where the fimbriated ends were identified, and a Filshie clip was then applied approximately 2-3 cm away from the cornual area on each side. Pelvis copiously irrigated with normal saline and suctioned out. Attention turned to the peritoneum which was closed in a running fashion using 2-0 Vicryl. Fascia closed in two separate segments of 0 Vicryl sutures. Skin reapproximated in a subcuticular fashion using 3-0 Vicryl on a Sebastina. Steri-Strips placed. Patient tolerated the procedure well. She was then transferred to the recovery room in stable condition. cc: [facility]
[2021-01-31 02:00] VITALS: BP 89/50
[2021-01-31] MEDS: PERCOCET 5MG/325MG TAB PO PRN ×5 (02:15→23:11)
[2021-01-31] MEDS: SIMETHICONE 80MG CHEW TAB PO PRN (05:37)
[2021-01-31 06:01] VITALS: BP 100/54
[2021-01-31 07:22] LABS: HEMATOCRIT 29.7 % (36.0-47.0); MEAN CORPUSCULAR HEMOGLOBIN 31.5 pg (27.0-33.0); MEAN CORPUSCULAR HGB CONC 32.3 g/dl (32.0-36.5); MEAN CORPUSCULAR VOLUME 97.4 fl (80.0-96.0); PLATELET COUNT, AUTOMATED 252 10^3/uL (150-450); RED BLOOD COUNT 3.05 10^6/uL (4.00-5.40); WHITE BLOOD COUNT 14.9 10^3/uL (4.0-10.0)
[2021-01-31 07:23] LABS: HEMOGLOBIN 9.6 g/dl (12.0-15.5)
[2021-01-31] MEDS: PRENATAL VITAMINS CHEWABLE TABLET PO SCH (08:55)
[2021-01-31] MEDS: IBUPROFEN 600MG TAB PO PRN ×2 (08:57→18:38)
[2021-01-31 10:00] VITALS: BP 91/52
[2021-01-31 14:00] VITALS: BP 104/52
[2021-01-31 18:00] VITALS: BP 85/50
[2021-01-31 22:00] VITALS: BP 89/51
[2021-02-01 02:00] VITALS: BP 96/52
[2021-02-01] MEDS: PERCOCET 5MG/325MG TAB PO PRN ×3 (03:03→12:11)
[2021-02-01] MEDS: IBUPROFEN 600MG TAB PO PRN ×2 (05:37→12:11)
[2021-02-01 05:59] VITALS: BP 97/52
--- NOTE | 2021-02-01 07:44 | DSES ---
DISCHARGE SUMMARY DATE OF ADMISSION: 01/30/2021 DATE OF DISCHARGE: 02/01/2021 DISCHARGE DIAGNOSIS: Repeat section with bilateral tubal ligation at term. Postop day #2 stable. SURGEON: Dr. Drake Cody ROPE RIDER: Dr. Yue Perdomo HISTORY: Diann is a 36-year-old 5 para 4-0-1-4 now who underwent repeat section with a bilateral tubal ligation at term. She had an EBL of 50 ml, delivered a live male, 7 pounds, 7 ounces, Apgars 9 and 9. The surgery was uncomplicated. She is breast-feeding. Her pain has been well-managed with p.o. pain medications. She has been out of bed for self-care, ton-care and infant care. She is tolerating p.o. fluids and a regular diet. She is voiding without difficulty and passing flatus. Does deny a bowel movement at this time. She requests discharge home. OBJECTIVE: Temperature 98.4, pulse 64, respirations 16, BP 97/52. She is alert and oriented x3. Preoperative CBC on 01/30/2021 with a hemoglobin of 12.0 and hematocrit 36.7, platelets 273,000. Postoperative CBC on 01/31/2021 with a hemoglobin of 9.6, hematocrit 29.7 and platelets 252,000. Her breasts are soft and nontender. Nipples are intact. Abdomen with fundus firm at one fingerbreadth below umbilicus. The incision is well-approximated. Steri-Strips are in place. There is no drainage, no edema and no redness observed. Perineum is intact with lochia rubra scant. Bilateral lower extremities: Scant pitting edema. PLAN: Discharge the patient to home today. She is to follow-up at [facility] for a two week incision check and an eight week visit. The appointments have been previously scheduled. Ibuprofen p.o. p.r.n. as needed for pain at home. I did review discharge instructions that include breast care, incision care, ton-care, pelvic rest, activity and lifting restrictions, danger signs to report and access to her care provider. She and her partner's questions have been answered and do desire discharge home. cc: DRAKE CODY,
[2021-02-01 09:00] VITALS: BP 97/52
[2021-02-01] MEDS: PRENATAL VITAMINS CHEWABLE TABLET PO SCH (09:46)
== END 2021-02-01 12:58 | disposition home or self-care (01) | DRG 540 ==
LOC: M LDI 07:32 → M OBS 13:23
PROVIDERS: ADMIT Obstetrics & Gynecology; ATTEND Obstetrics & Gynecology
PROC: 0UB70ZZ Excision of Bilateral Fallopian Tubes, Open Approach (ICD-10-PCS; 2021-01-30)
PROC: 10D00Z1 Extraction of Products of Conception, Low, Open Approach (ICD-10-PCS; principal; 2021-01-30 09:30)
DX: O34.211 Maternal care for low transverse scar from previous cesarean delivery (principal); Z3A.39 39 weeks gestation of pregnancy; Z37.0 Single live birth; Z30.2 Encounter for sterilization

== ENCOUNTER → 2023-02-21 | Outpatient (REF) | payer BC ==
[~2023-02-21] MED LIST: PRENTAB9 PO
== END ==
LOC: M LAB REF 12:43
PROVIDERS: ATTEND Registered Nurse
DX: R30.0 Dysuria (principal)

== ENCOUNTER → 2024-02-06 | Outpatient (REF) | payer BC, OTHER | LOC: M LAB REF 12:34 | PROVIDERS: ATTEND Registered Nurse | DX: R35.0 Frequency of micturition (principal) ==